=== PATIENT | female | born 1995 | race Caucasian/White ===

== ENCOUNTER 2017-11-30 11:55 | Observation (INO) | payer MEDICAID ==
[~2017-11-30 11:55] MED LIST: [UNRECOGNIZED DRUG - CODE] OR
== END 2017-11-30 13:05 | disposition home or self-care (01) | DRG 566 ==
LOC: LDRP 11:55
PROVIDERS: ADMIT Obstetrics & Gynecology; ATTEND Obstetrics & Gynecology
DX: O26.23 Pregnancy care for patient with recurrent pregnancy loss, third trimester (principal); Z3A.39 39 weeks gestation of pregnancy
CPT/HCPCS: 59025; 81002; G0378

== ENCOUNTER 2017-12-01 05:49 | Inpatient (IN) | payer MEDICAID ==
[~2017-12-01] VITALS: Ht 165.1 cm; Wt 72.6 kg
[2017-12-01] MEDS ORDERED: LACTATED RINGER'S 1,000 ML IV SCH (06:03)
[2017-12-01] MEDS ORDERED: LIDOCAINE 2%HCL (LOCAL ANESTH.) INJ 20ML MDV ONE (06:22)
[2017-12-01] MEDS ORDERED: WITCH HAZEL-GLYCERIN PAD TOP ONE (06:23)
[2017-12-01] MEDS ORDERED: PHISODERM TOP SOLN 240ML BTL TOP ONE (06:23)
[2017-12-01] MEDS ORDERED: DERMOPLAST 60ML BOTTLE TOP ONE (06:23)
[2017-12-01] MEDS ORDERED: LACT. RINGERS/OXYTOCIN 20UNITS 1,000 ML IV ONE (06:23)
[2017-12-01] MEDS ORDERED: METHYLERGONOVINE MALEATE 0.2 MG/ML AMP IM ONE (06:24)
[2017-12-01] MEDS ORDERED: CLINDAMYCIN 900MG IV 50 ML IV ONE (06:30)
[2017-12-01 06:38] LABS: Urine Bacteria FEW /hpf (None Seen); Urine Blood Negative /uL (Negative); Urine Mucus FEW (None Seen); Urine Specific Gravity 1.022 (1.001-1.035); Urine WBC 3 /hpf (0 - 5)
[2017-12-01 07:24] LABS: Basophils # (auto) 0 uL; Basophils % (auto) 0.3 % (0.0-2.0); Eosinophils # (auto) 0 uL; Eosinophils % (auto) 0.3 % (0.0-7.0); Hematocrit 35.5 % (36.0-46.0); Lymphocytes % (auto) 8.5 % (10.0-50.0); Mean Corpuscular Hemoglobin 29.6 pg (28.0-32.0); Mean Corpuscular Hgb Conc. 33.7 g/dL (32.0-36.0); Mean Corpuscular Volume 87.8 fL (80.0-100.0); Monocytes # (auto) 0.7 uL; Neutrophils # (auto) 9.8 uL; Neutrophils % (auto) 84.9 % (37.0-80.0); Platelet Count (auto) 218 10^3/uL (140-450); Red Blood Cells 4.04 10^6/uL (4.0-5.20); White Blood Cell 11.5 10^3/uL (4.4-10.8)
[2017-12-01 07:41] LABS: INR 0.95 (0.9-1.15); Partial Thromboplastin Time 24.9 sec (22.64-33.71); Prothrombin Time 10.3 sec (9.37-12.3)
[2017-12-01 07:45] LABS: Albumin 2.9 g/dL (3.4-5.0); BUN/Creatinine Ratio 22.4; Bilirubin, Total 0.7 mg/dL (0.2-1.0); Calcium 8.2 mg/dL (8.5-10.1); Potassium 3.6 mmol/L (3.5-5.1); Total Protein 6.6 g/dL (6.4-8.2)
[2017-12-01 12:15] VITALS: BP 109/66
[2017-12-01] MEDS ORDERED: CLINDAMYCIN 900MG IV 50 ML IV SCH (14:00)
[2017-12-01 16:30] VITALS: BP 111/70
[2017-12-01 18:35] VITALS: BP 119/72
[2017-12-01] MEDS ORDERED: IBUPROFEN 600 MG TAB PO PRN (19:45)
[2017-12-01] MEDS ORDERED: ACETAMINOPHEN 325 MG TAB PO PRN (19:45)
[2017-12-01 23:00] VITALS: BP 102/58
[2017-12-02 03:00] VITALS: BP 99/55
[2017-12-02 07:00] VITALS: BP 103/65
[2017-12-02] MEDS ORDERED: DERMOPLAST 60ML BOTTLE TOP ONE (09:49)
== END 2017-12-02 11:00 | disposition home or self-care (01) | DRG 560 ==
LOC: LDRP 05:49 → OBSVTOIN 05:49 → LDRP 07:28
PROVIDERS: ADMIT Obstetrics & Gynecology; ATTEND Obstetrics & Gynecology
PROC: 10E0XZZ Delivery of Products of Conception, External Approach (ICD-10-PCS; principal; 2017-12-01)
PROC: 0KQM0ZZ Repair Perineum Muscle, Open Approach (ICD-10-PCS; 2017-12-01)
DX: O62.3 Precipitate labor (principal); O99.824 Streptococcus B carrier state complicating childbirth; O70.1 Second degree perineal laceration during delivery; Z3A.39 39 weeks gestation of pregnancy; Z37.0 Single live birth; Z88.0 Allergy status to penicillin; Z88.1 Allergy status to other antibiotic agents
CPT/HCPCS: 36415; 59025; 59409; 80053; 81001; 81002; 85025; 85610; 85730; 86850; 86900; 86901; 96365; 96366; J2590; J3490